=== PATIENT | male | born 1990 | race Caucasian/White ===

== ENCOUNTER 2017-05-25 19:18 | Emergency (ER) | payer SELFPAY ==
[2017-05-25 19:26] VITALS: BP 143/80
--- NOTE | 2017-05-25 19:51 | ERNOTE ---
Time Seen by Provider: 05/25/17 19:36 Stated Complaint: URI Presenting Symptoms:: cough, sore throat Source: patient Exam Limitations: no limitations Immunizations: IMMUNIZATION HX Immunizations Up to Date No History of Influenza Vaccine No Allergies/Adverse Reactions: Allergies Penicillins Allergy (Verified 05/25/17 19:26) Hives Home Medications: HOME MEDICATIONS Albuterol Sulfate [Ventolin HFA] 2 puff IH Q6H PRN 7 Days inhaler 05/25/17 [ Last Taken Unknown] Doxycycline Monohydrate 100 mg PO BID #20 tablet 05/25/17 [Last Taken Unknown] predniSONE [Deltasone] 20 mg PO BID #10 tablet 05/25/17 [Last Taken Unknown] - History of Present Ilness Narrative: Patient had a cough and a sore throat for approximately a week. Timing: constant Severity: moderate Frequency/Possible Cause: Reports: no prior episodes Modifying Factors - Improves: Reports: nothing Modifying Factors - Worsens: Reports: nothing Associated Symptoms: Reports: cough Review of Systems - Review of Systems Constitutional: Present: See HPI EYE: Present: no symptoms reported ENT: Present: See HPI Respiratory: Present: cough Cardiology: Present: no symptoms reported Gastrointestinal/Abdominal: Present: no symptoms reported Genitourinary: Present: no symptoms reported Musculoskeletal: Present: no symptoms reported Skin: Present: no symptoms reported Neurological: Present: no symptoms reported Endocrine: Present: no symptoms reported Hematologic/Lymphatic: Present: no symptoms reported Psych: Present: no symptoms reported - Patient's Past Medical History Patient History - Medical: No pertinent hx Patient History - Cardiac/Respiratory: No pertinent hx Patient History - Cancer: No Hx of Cancer Patient History - Surgical Procedures: No surgical history Patient History - Other: None - Social History Living Situations: home Psych History: No pertinent hx Smoking Status: Former smoker Alcohol Use: none Drug Use: none - Immunizations Immunizations Up to Date: No History of Influenza Vaccine: No Physical Exam - Physical Exam General Appearance: Present: wd/wn, alert, moderate distress Head Exam: Present: normal inspection Eye Exam: Normal inspection: bilateral, PERRL: bilateral Ears, Nose, Throat: Present: pharyngeal erythema Neck: Present: normal inspection, nontender Respiratory: Present: no respiratory distress, no accessory muscle use, chest nontender, other - plan coarse breath sounds Cardiovascular/Chest: Present: regular rate, rhythm, no murmur, normal peripheral pulses Gastrointestinal/Abdominal: Present: normal bowel sounds, nontender, nondistended, soft, no organomegaly Rectal Exam: Present: deferred Back Exam: Present: normal inspection, normal range of motion Extremity Exam: Present: normal inspection, non-tender, no edema, normal range of motion Neurological Exam: Present: alert, oriented, normal mood/affect Skin Exam: Present: normal color, warm/dry Lymphatic Exam: Present: no adenopathy ED Progress - Vital Signs Patient's Vital Signs:: I have reviewed the patient's vital signs. Vital Signs: Vital Signs 05/25/17 19:23 Temperature 36.8 C Pulse Rate 51 L Respiratory 20 Rate Blood Pressure 143/80 O2 Sat by Pulse 100 Oximetry - Progress/Reassessment Chief Complaint: Upper Respiratory Symptoms Plan - Plan Plan: Patient be treated with doxycycline, prednisone and a Ventolin inhaler. Patient will follow up with his family physician within 10 days to 2 weeks for reassessment. Departure Clinical Impression: Bronchitis Pharyngitis Qualifiers: Pharyngitis/tonsillitis etiology: other specified organisms Qualified Code(s): J02.8 - Acute pharyngitis due to other specified organisms - Departure Disposition: Home self-care Condition: Good Instructions: Acute Bronchitis, [id number], Sore Throat Referrals: Hal Martin MD [Primary Care Provider] - Prescriptions: Albuterol Sulfate [Ventolin HFA] 2 puff IH Q6H PRN 7 Days inhaler PRN Reason: Wheezing Doxycycline Monohydrate 100 mg PO BID #20 tablet predniSONE [Deltasone] 20 mg PO BID #10 tablet
== END 2017-05-25 19:55 | disposition home or self-care (01) ==
LOC: ER 19:18
DX: J02.8 Acute pharyngitis due to other specified organisms (principal); J40 Bronchitis, not specified as acute or chronic